=== PATIENT | female | born 1985 | race African-American/Black ===

== ENCOUNTER 2022-10-01 04:57 | Day surgery (SDC) | payer OTHER ==
[2022-09-30 11:31] VITALS: BMI 27.6
[2022-10-01 13:29] VITALS: RESP 18; TEMP 97.8
[2022-10-01 15:38] VITALS: BP 130/52; PULSE 66
== END 2022-10-01 14:02 | disposition home or self-care (01) ==
LOC: JASU-ENDO 04:57
PROVIDERS: ATTEND Student in an Organized Health Care Education/Training Program
PROC: 0DB78ZX Excision of Stomach, Pylorus, Via Natural or Artificial Opening Endoscopic, Diagnostic (ICD-10-PCS; 2022-10-01)
PROC: 0DB68ZX Excision of Stomach, Via Natural or Artificial Opening Endoscopic, Diagnostic (ICD-10-PCS; 2022-10-01)
PROC: 0DB48ZX Excision of Esophagogastric Junction, Via Natural or Artificial Opening Endoscopic, Diagnostic (ICD-10-PCS; 2022-10-01)
PROC: 0DB98ZX Excision of Duodenum, Via Natural or Artificial Opening Endoscopic, Diagnostic (ICD-10-PCS; principal; 2022-10-01 13:00)
DX: K29.50 Unspecified chronic gastritis without bleeding (principal); K21.00 Gastro-esophageal reflux disease with esophagitis, without bleeding; K31.7 Polyp of stomach and duodenum
CPT/HCPCS: 81025; 88305-TC; 88341-TC; 88342-TC